=== PATIENT | female | born 1970 | race Caucasian/White ===

== ENCOUNTER → 2023-11-29 06:17 | Day surgery (SDC) | payer BC, SELFPAY | LOC: GI 06:17 | PROVIDERS: ATTENDING PHYSICIAN Internal Medicine; FAMILY PHYSICIAN Family Medicine | DX: Z12.11 Encounter for screening for malignant neoplasm of colon (principal); D12.3 Benign neoplasm of transverse colon; K63.5 Polyp of colon; Z80.0 Family history of malignant neoplasm of digestive organs | CPT/HCPCS: 45385; 45380; 88305 ==

== ENCOUNTER → 2024-09-30 07:37 | Outpatient (REF) | payer BC, SELFPAY | LOC: RAD 07:37 | PROVIDERS: ATTENDING PHYSICIAN Family Medicine | DX: R05.3 Chronic cough (principal) | CPT/HCPCS: 71046 ==

== ENCOUNTER → 2024-11-06 08:58 | Outpatient (REF) | payer BC, SELFPAY | LOC: RSP 08:58 | PROVIDERS: ATTENDING PHYSICIAN Family Medicine | DX: R05.3 Chronic cough (principal) | CPT/HCPCS: 88738; 94010; 94727; 94729 ==

== ENCOUNTER → 2025-02-18 07:07 | Outpatient (REF) | payer BC, SELFPAY | LOC: RAD 07:07 | PROVIDERS: ATTENDING PHYSICIAN Physician Assistant Medical; FAMILY PHYSICIAN Family Medicine | DX: E01.0 Iodine-deficiency related diffuse (endemic) goiter (principal) | CPT/HCPCS: 76536 ==